=== PATIENT | female | born 1995 | race Caucasian/White ===

== ENCOUNTER 2017-02-15 01:39 | Emergency (ER) | payer BC ==
[~2017-02-15] VITALS: Ht 160 cm; Wt 58.0 kg
[2017-02-15 01:49] VITALS: TEMP 36.8; Ht 160 cm; Wt 58.0 kg
[2017-02-15] MEDS ORDERED: SODIUM CHLORIDE 0.9% 1000ML 1,000 ML IV STA (01:49)
[2017-02-15] MEDS ORDERED: OPTIRAY 320 IV PRN (02:00)
[2017-02-15 02:15] LABS: BASO % 0.3 %; BASO ABS # 0.02 K/uL (0-0.2); EOS % 1.2 %; EOS ABS # 0.09 K/uL (0-0.5); HEMOGLOBIN 12.3 g/dL (12.0-16.0); IG# 0.02 K/uL (0.00-0.02); LYMPH % 38.9 %; LYMPH ABS # 2.98 K/uL (1.2-3.4); MEAN CELL VOLUME 93.8 fL (80-100); MEAN CORPUSCULAR HGB CONC 34.2 g/dl (32-36); MEAN PLATELET VOLUME 10.3 fL (7.4-10.4); MONO % 6.3 %; MONO ABS # 0.48 K/uL (0.11-0.59); NEUT ABS # 4.07 K/uL (1.4-6.5); PLATELET COUNT 256 K/uL (130-400); RED CELL DISTRIBUTION WIDTH SD 44.7 fL (36.4-46.3); WHITE BLOOD COUNT 7.66 K/uL (4.8-10.8)
[2017-02-15 02:32] LABS: CALCIUM 8.1 mg/dl (8.5-10.1); CREATININE 0.77 mg/dl (0.60-1.20); POTASSIUM 2.9 mmol/L (3.5-5.1)
[2017-02-15] MEDS ORDERED: POTASSIUM CHLORIDE 10 MEQ TABCR PO STA (05:53)
[2017-02-15 06:00] VITALS: PULSE 66
--- NOTE | 2017-02-15 06:28 | DIAGNOSTIC IMAGING REPORT ---
CT HEAD WITHOUT CONTRAST (CT) CLINICAL HISTORY: Head pain status post trauma. Change in mental status. COMPARISON STUDY: No previous studies for comparison. TECHNIQUE: Axial CT of the brain is performed from the vertex to the skull base. IV contrast was not administered for this examination. A dose lowering technique was utilized adhering to the principles of ALARA. CT DOSE: FINDINGS: No intra or extra-axial mass lesions are visualized. There is no CT evidence of acute cortical infarction. There is no evidence of midline shift. There is no acute hemorrhage. No calvarial fractures are visualized. There is no evidence of pathologic ventricular dilatation. There is no evidence of acute sinusitis IMPRESSION: Normal noncontrast head CT. Electronically signed by: Roberto Tijerina M.D. 02/15/2017 6:27 AM Dictated Date/Time: 02/15/2017 6:26 AM
--- NOTE | 2017-02-15 06:51 | DIAGNOSTIC IMAGING REPORT ---
CT ABD/PELVIS IV CONTRAST ONLY CLINICAL HISTORY: Abdominal pain status post trauma. Patient fell down stairs. COMPARISON STUDY: None. TECHNIQUE: Following the IV administration of 92 mL of Optiray-320, CT scan of the abdomen and pelvis was performed from the lung bases to the proximal femurs. Images are reviewed in the axial, sagittal, and coronal planes. IV contrast was administered without complication. A dose lowering technique was utilized adhering to the principles of ALARA. CT DOSE: FINDINGS: Lower chest: The heart is normal in size and configuration, without pericardial effusion. The lung bases and pleural spaces are clear. Liver: There is mild periportal edema, likely secondary to hydration. There is no evidence of acute hepatic injury. Gallbladder: Unremarkable. Spleen: Normal in size and attenuation. Pancreas: Unremarkable. Adrenal glands: Unremarkable. Kidneys: There is symmetric renal cortical enhancement. The kidneys are normal in size without hydronephrosis. Bowel: There are no transition zones indicate bowel obstruction. There is no interloop fluid. There are no extraluminal gas collections. There are no acute inflammatory changes. Peritoneum: There is no intraperitoneal free air or abdominal ascites. Vasculature: The abdominal aorta is normal in course and caliber. Adenopathy: None. Pelvic viscera: The bladder, and pelvic viscera are unremarkable. A tampon is visualized. Skeletal structures: No destructive osseous lesions are seen. IMPRESSION: No evidence of acute intra-abdominal or pelvic injury. Electronically signed by: Roberto Tijerina M.D. 02/15/2017 6:50 AM Dictated Date/Time: 02/15/2017 6:48 AM
[2017-02-15 06:55] VITALS: O2SAT 99
--- NOTE | 2017-02-15 07:12 | DIAGNOSTIC IMAGING REPORT ---
CERVICAL SPINE CT CT DOSE: HISTORY: Fall. Neck pain. TECHNIQUE: Multiaxial CT images of the cervical spine were performed and reformatted in the sagittal and coronal plane without the use of contrast. A dose lowering technique was utilized adhering to the principles of ALARA. COMPARISON: None. FINDINGS: No fractures. No subluxation. Prevertebral soft tissues and the C1-C2 interval are intact. No pneumothorax. Slight reversal of the normal lordotic curvature. IMPRESSION: No fractures within the cervical spine. Electronically signed by: Tavon Hardin M.D. 02/15/2017 7:11 AM Dictated Date/Time: 02/15/2017 7:08 AM
--- NOTE | 2017-02-15 07:18 | DIAGNOSTIC IMAGING REPORT ---
CT SCAN OF THE CHEST WITH IV CONTRAST CLINICAL HISTORY: Fall. Intoxication. COMPARISON STUDY: No priors. TECHNIQUE: Following the IV administration of 92 cc of Optiray 320, CT scan of the thorax was performed from the thoracic inlet to the upper abdomen. Images are reviewed in the axial, sagittal, and coronal planes. IV contrast was administered without complication. A dose lowering technique was utilized adhering to the principles of ALARA. The Examination is degraded by streak artifact from the patient's arms which could not be elevated above the chest. CT DOSE: 1466.43 mGy.cm FINDINGS: Thyroid: Imaged portions of the thyroid gland are normal in size and attenuation. Thoracic aorta: The thoracic aorta is normal in caliber and demonstrates standard 3-vessel arch anatomy. No dissection is seen. Pulmonary vasculature: The pulmonary trunk is normal in caliber. There are no filling defects identified in the central pulmonary vessels to indicate pulmonary embolus. Note that this examination was not protocoled for evaluation of the pulmonary arteries. Heart: The heart is normal in size and configuration, and without pericardial effusion. Lungs and pleural spaces: The lungs and pleural spaces are clear. There is no pneumothorax. The trachea and central airways are patent. Mediastinum: There is no mediastinal hematoma or lymphadenopathy. Divine: Clear. Axillae: There is no axillary lymphadenopathy. Upper abdomen: Partially visualized upper abdominal viscera is within normal limits. Skeletal structures: The bony thorax appears intact. No lytic or blastic bony lesions are seen. IMPRESSION: 1. There is no acute posttraumatic intrathoracic abnormality. 2. The lungs are clear. No pneumothorax is seen. Electronically signed by: Braden Haynes M.D. 02/15/2017 7:17 AM Dictated Date/Time: 02/15/2017 7:12 AM
[2017-02-15 09:01] VITALS: BP 92/55
[2017-02-15] MEDS ORDERED: POTASSIUM CHLORIDE 10 MEQ TABCR ONE ×2 (09:06→09:11)
--- NOTE | 2017-02-15 09:14 | EMERGENCY ROOM VISIT NOTE ---
ED Visit Note This patient's case was signed out to me by Sohan Rutledge PA-C at the end of her shift. The patient had presented to the ER intoxicated and was unable to answer questions. She had fell down some steps. The patient is now awake and oriented. The patient has no physical complaints. She is feeling well. She is alert and oriented. The patient was discharged home with a friend driving.
[2017-02-15 13:09] LABS: ISTAT CREATININE 1.3 mg/dl; ISTAT IONIZED CALCIUM 0.98 mmol/l
--- NOTE | 2017-02-16 06:33 | EMERGENCY ROOM VISIT NOTE ---
History First contact with patient: 01:43 Chief Complaint: ALCOHOL OVERDOSE Stated Complaint: FELL DOWN STAIRS,NOT MAKING SENSE Nursing Triage Summary: Pt slumped over in chair in waiting room. Brought to room A9. PA at bedside. Pt does not go to school here, visiting friends. Per friends, patient had fallen down 5-6 stairs, unknown if hit head. Pt has abrasions to left flank and left shoulder. Pt can state name/birthday, slurred incoherent speech. History of Present Illness The patient is a 21 year old female who presents to the Emergency Room with complaints of alcohol intoxication who fell down 6 steps tonight backwards. Patient is highly intoxicated and slurring her words and incoherent. History is obtained from the friends who witnessed the event. The friends state that she had a lot of tequila and vodka tonight. Patient states she drinks a lot. They state that she fell down backwards 5-6 steps in apartment complex. They did not believe she lost consciousness. They state that she was unable to stand up straight as she was highly intoxicated. They immediately brought her here. They state that she goes to school in [place] and is just visiting. They know her from high school. They deny any drug use tonight. They state that she has not vomited. Review of Systems Unable to obtain secondary to altered mental status from alcohol intoxication Past Medical/Surgical History Unable to obtain secondary to altered mental status from alcohol intoxication Social History Smoking Status: Never Smoker Alcohol Use: heavy Occupation Status: student Current/Historical Medications Unable to Obtain Active Prescriptions or Reported Meds Physical Exam Vital Signs Date Time Temp Pulse Resp B/P (MAP) Pulse Ox O2 Delivery O2 Flow Rate FiO2 02/15/17 09:01 92/55 02/15/17 06:55 103/80 99 02/15/17 06:00 66 16 120/62 95 Room Air 02/15/17 05:00 60 16 90/40 96 Room Air 02/15/17 04:00 62 16 91/46 95 Room Air 02/15/17 03:00 64 16 117/42 97 Room Air 02/15/17 01:53 Room Air 02/15/17 01:53 Room Air 02/15/17 01:50 63 02/15/17 01:49 36.8 90 16 120/73 99 Room Air Physical Exam PHYSICAL EXAM: VITALS: Vitals are noted on the nurse's note and reviewed by myself. Vital signs stable. GENERAL: White female with EtOH slurring her words and coherent, nondiaphoretic , well-developed well-nourished. SKIN: Left flank and left shoulder contusions and abrasions, The rest of the skin was without obvious lacerations or abrasions. Capillary reflex less than 2 seconds. HEAD: Normocephalic atraumatic. EARS: External auditory canals clear, tympanic membranes pearly bernard without erythema or effusion bilaterally. No hemotympanums. No horowitz sign. No mastoid tenderness. EYES: Pupils equal round and reactive to light and accommodation. Conjunctivae with injection, sclerae without icterus. Extraocular movements intact. NOSE: Patent, turbinates without inflammation or discharge. No sinus tenderness. No septal hematoma or bleeding. FACE: No facial bone tenderness. Full range of motion of the jaw without tenderness. MOUTH: Mucous membranes moist. Pharynx without erythema or exudate. Uvula midline. Airway patent. Tongue does not deviate. NECK: Supple without nuchal rigidity. Cervical spine is nontender. The collar was placed as I cannot clear her C-spine as the patient is intoxicated. No JVD. HEART: Regular rate and rhythm without murmurs gallops or rubs. LUNGS: Clear to auscultation bilaterally without wheezes, rales or rhonchi. No dullness to percussion. No retractions or accessory muscle use. No chest wall tenderness. ABDOMEN: Positive bowel sounds x 4. Normal tympanic percussion. Soft, nontender, without masses or organomegaly. No guarding or rebound tenderness. MUSCULOSKELETAL: No tenderness of the thoracic or lumbar spine. No tenderness with pelvic rocking. Full range of motion without tenderness to palpation in all extremities. NEURO: The patient is visibly intoxicated. Once they were more sober they were alert and oriented to person place and time. Medical Decision & Procedures Laboratory Results 02/15/17 02:00 Red Blood Count 3.84, Mean Corpuscular Volume 93.8, Mean Corpuscular Hemoglobin 32.0, Mean Corpuscular Hemoglobin Concent 34.2, Mean Platelet Volume 10.3, Neutrophils (%) (Auto) 53.0, Lymphocytes (%) (Auto) 38.9, Monocytes (%) (Auto) 6.3, Eosinophils (%) (Auto) 1.2, Basophils (%) (Auto) 0.3, Neutrophils # (Auto) 4.07, Lymphocytes # (Auto) 2.98, Monocytes # (Auto) 0.48, Eosinophils # (Auto) 0.09, Basophils # (Auto) 0.02 02/15/17 02:00 Test 02/15/17 02:00 02/15/17 02:09 White Blood Count 7.66 K/uL (4.8-10.8) Red Blood Count 3.84 M/uL (4.2-5.4) Hemoglobin 12.3 g/dL (12.0-16.0) Hematocrit 36.0 % (37-47) Mean Corpuscular Volume 93.8 fL (80-100) Mean Corpuscular Hemoglobin 32.0 pg (25-34) Mean Corpuscular Hemoglobin Concent 34.2 g/dl (32-36) Platelet Count 256 K/uL (130-400) Mean Platelet Volume 10.3 fL (7.4-10.4) Neutrophils (%) (Auto) 53.0 % Lymphocytes (%) (Auto) 38.9 % Monocytes (%) (Auto) 6.3 % Eosinophils (%) (Auto) 1.2 % Basophils (%) (Auto) 0.3 % Neutrophils # (Auto) 4.07 K/uL (1.4-6.5) Lymphocytes # (Auto) 2.98 K/uL (1.2-3.4) Monocytes # (Auto) 0.48 K/uL (0.11-0.59) Eosinophils # (Auto) 0.09 K/uL (0-0.5) Basophils # (Auto) 0.02 K/uL (0-0.2) RDW Standard Deviation 44.7 fL (36.4-46.3) RDW Coefficient of Variation 13.0 % (11.5-14.5) Immature Granulocyte % (Auto) 0.3 % Immature Granulocyte # (Auto) 0.02 K/uL (0.00-0.02) Est Creatinine Clear Calc Drug Dose 96.4 ml/min Estimated GFR () 128.8 Estimated GFR (Non- 111.1 BUN/Creatinine Ratio 13.8 (10-20) Calcium Level 8.1 mg/dl (8.5-10.1) Human Chorionic Gonadotropin, Qual NEG (NEG) Ethyl Alcohol mg/dL 321.0 mg/dl (0-3) Bedside Hemoglobin 11.9 g/dl (12.0-16.0) Bedside Hematocrit 35 % (37-47) Bedside Sodium 141 mEq/L (135-144) Bedside Potassium 4.0 mEq/L (3.3-5.0) Bedside Chloride 106 mEq/L (101-112) Bedside Total CO2 25 mEq/l (24-31) Anion Gap 15.0 mmol/L (16-25) Bedside Blood Urea Nitrogen 12 mg/dl (7-18) Bedside Creatinine 1.3 mg/dl Bedside Glucose (other) 102 mg/dl (70-99) Bedside Ionized Calcium (Nahum) 0.98 mmol/l Medications Administered Medications (Trade) Dose Ordered Sig/Bess Route Start Time Stop Time Status Last Admin Dose Admin Sodium Chloride 1,000 ml @ 999 mls/hr Q1H1M STAT IV 02/15/17 01:49 02/15/17 02:49 DC 02/15/17 01:49 999 MLS/HR Potassium Chloride (Klor-Con M10) 60 meq NOW STAT PO 02/15/17 05:53 02/15/17 05:55 DC 02/15/17 09:18 60 MEQ ED Course Prior records/ancillary studies reviewed. Triage Nursing notes reviewed. Additional history obtained from friends. The patient's history was concerning for traumatic injury Differential diagnosis: Etiologies such as fracture, dislocation, intra-abdominal, pneumothorax, intrathoracic , intracranial, neurologic, as well as other traumatic pathologies were entertained. Physical examination findings: As above. The patients vitals were stable. ER treatment provided: IV Normal Saline hydration, 1000 mL. Monitoring Aspiration precautions The patient was frequently reassessed. On reassessment the patient felt better. Vital signs were stable. Diagnostic interpretation by me: A bedside F.A.S.T ultrasound was performed by me and revealed no free fluid per my interpretation The labs revealed stable H&H. Alcohol 331 Imaging studies: Abdominal, pelvis and chest CT is negative for fracture, bleed or intrathoracic or abdominal injury per radiology Head and cervical scans negative for intracranial bleed or fracture per radiology and per review This appears to be consistent with alcohol intoxication who fell down a flight of steps with a flank and shoulder contusion. Case is signed out to Lita Jose, PA-C pending patient sobering up and reevaluation in stable condition. Case reviewed with my attending The chart was completed utilizing [employer] Speech voice recognition software. Grammatical errors, random word insertions, pronoun errors, and incomplete sentences are an occassional consequence of this system due to software limitations, ambient noise, and hardware issues. Any formal questions or concerns about the content, text, or information contained within the body of this dictation should be directly addressed to the physician real estate legal assistant for clarification. Medical Decision As above Head Trauma GCS Score: 15 Medication Reconcilliation Current Medication List: was personally reviewed by me Blood Pressure Screening Patient's blood pressure: Normal blood pressure Impression Primary Impression: Alcohol overdose Additional Impressions: Fall Hypokalemia Departure Information Dispostion Home / Self-Care Condition GOOD Prescriptions Unable to Obtain Active Prescriptions or Reported Meds Referrals No Doctor, Assigned (PCP) Patient Instructions My [facility] Additional Instructions Take the potassium at lunch with food that was given to you in the ER. Keep well-hydrated. Tylenol every 6 hours as needed for pain (Maximum 3000 mg Tylenol in 24 hr period). Follow up with family doctor and/or health services as needed. No driving for the next 24 hours. Recommend no alcohol for the next 48 hours and avoid binge drinking in the future. Return to ER sooner for chest pain, abdominal pain, worsening signs or symptoms or as needed. Problem Qualifiers Primary Impression: Alcohol overdose Encounter type: initial encounter Injury intent: accidental or unintentional Qualified Codes: T51.91XA - Toxic effect of unspecified alcohol , accidental (unintentional), initial encounter
== END 2017-02-15 09:38 | disposition home or self-care (01) ==
LOC: C.EDB 01:41 → C.EDA 09:38
DX: F10.929 Alcohol use, unspecified with intoxication, unspecified (principal); S40.012A Contusion of left shoulder, initial encounter; S40.212A Abrasion of left shoulder, initial encounter; W10.9XXA Fall (on) (from) unspecified stairs and steps, initial encounter; E87.6 Hypokalemia; Y90.8 Blood alcohol level of 240 mg/100 ml or more; R40.2412 Glasgow coma scale score 13-15, at arrival to emergency department